=== PATIENT | female | born 2000 | race Caucasian/White ===

== ENCOUNTER → 2019-02-26 | Outpatient (CLI) | payer OTHER ==
--- NOTE | 2019-02-27 13:09 | KCIC ---
MR of the right knee HISTORY: Right knee pain chronically. Locking for years. Swelling at times. Lateral pain. TECHNIQUE: Routine multiplanar sequences are obtained. FINDINGS: No evidence of medial meniscal tear. No evidence of lateral meniscal tear. Anterior and posterior cruciate ligaments are intact. Medial collateral ligament is intact. Iliotibial band unremarkable. Fibular collateral ligament, biceps femoris tendon and popliteus tendon are intact. Extensor mechanism intact. No retinacular disruption. Small joint effusion. No significant Narvaez's cyst. No acute articular cartilage defect or DJD. No acute fracture or aggressive bone destruction. There may be slight lateral patellar tilt, without subluxation. Tibial tubercle-trochlear groove distance measures 14 mm. IMPRESSION: No evidence of acute abnormality or internal derangement. Electronically signed by: Saúl Tavares MD (02/27/2019 1:06 PM) [id number]
== END | disposition home or self-care (01) ==
LOC: KCIC MRI 17:04
PROVIDERS: ATTEND Family Medicine
DX: M25.461 Effusion, right knee (principal)
CPT/HCPCS: 73721